=== PATIENT | male | born 1970 | race Caucasian/White ===

== ENCOUNTER 2020-09-22 13:49 | Emergency (ER) | payer OTHER ==
[~2020-09-22] VITALS: Ht 152.4 cm; Wt 63.0 kg
[2020-09-22 14:38] VITALS: BP 135/83; Ht 152.4 cm; Wt 63.0 kg
== END 2020-09-22 15:09 | disposition home or self-care (01) ==
LOC: ED 13:49
DX: L02.416 Cutaneous abscess of left lower limb (principal)